=== PATIENT | female | born 1965 | race Caucasian/White ===

== ENCOUNTER 2018-04-13 19:20 | Inpatient (IN) | payer BC ==
[~2018-04-13] VITALS: Ht 157.5 cm; Wt 66.4 kg
[2018-04-13] MEDS ORDERED: piperacillin/tazo 3.375gm/50ml 50 ML IV STA (19:37)
[2018-04-13] MEDS ORDERED: metoclopramide 5 mg/ml inj IV ONE (19:40)
[2018-04-13] MEDS ORDERED: normal saline 1000ML IV soln IVB ONE ×2 (19:40)
[2018-04-13] MEDS ORDERED: diphenhydrAMINE 50 mg/ml inj IV ONE (19:40)
[2018-04-13 20:05] LABS: BASOPHILS % (AUTO) 0 % (0-1); EOSINOPHILS # (AUTO) 0.1 X10'3 (0-0.9); EOSINOPHILS % (AUTO) 0.8 % (0-6); HEMATOCRIT 45.9 % (35.0-45.0); HEMOGLOBIN 15.9 g/dl (12.0-16.0); LYMPHOCYTES # (AUTO) 0.6 X10'3 (1.1-4.8); LYMPHOCYTES % (AUTO) 4.6 % (21-51); MEAN CORPUSCULAR HEMOGLOBIN 31.9 PG (27.0-31.0); MEAN CORPUSCULAR HGB CONC 34.6 g/dL (33.0-36.5); MEAN CORPUSCULAR VOLUME 92.4 FL (78-98); MEAN PLATELET VOLUME 8.7 FL (7.4-10.4); MONOCYTES # (AUTO) 0.7 X10'3 (0-0.9); MONOCYTES % (AUTO) 5.3 % (2-12); NEUTROPHILS # (AUTO) 11.7 X10'3 (1.8-7.7); NEUTROPHILS % (AUTO) 89.3 % (42-75); PLATELET COUNT 232 X10'3 (140-440); RED BLOOD COUNT 4.97 X10'6 (4.20-5.60); RED CELL DISTRIBUTION WIDTH 13.3 % (11.5-14.5); WHITE BLOOD COUNT 13.1 X10'3 (4.5-11.0)
[2018-04-13 20:06] LABS: INR 1.1 INR; PROTHROMBIN TIME 10.9 SECONDS (9.0-12.0)
[2018-04-13 20:21] LABS: ALANINE AMINOTRANSFERASE 30 U/L (12-78); ALBUMIN/GLOBULIN RATIO 1.2 (1.1-1.5); ALKALINE PHOSPHATASE 75 IU/L (46-116); ANION GAP 19 (8-16); ASPARTATE AMINO TRANSFERASE 25 U/L (10-37); BILIRUBIN,TOTAL 0.8 MG/DL (0.1-1.0); BLOOD UREA NITROGEN 10 MG/DL (7-18); BUN/CREATININE RATIO 11.6 (6.6-38.0); CALCIUM 8.9 MG/DL (8.5-10.1); CHLORIDE 98 MMOL/L (99-107); CREATININE 0.86 MG/DL (0.40-0.90); GLUCOSE 150 MG/DL (70-104); POTASSIUM 3.4 MMOL/L (3.5-5.1); SODIUM 137 MMOL/L (135-145); TOTAL CARBON DIOXIDE 19.7 MMOL/L (24-32); TOTAL PROTEIN 7.4 G/DL (6.4-8.2); eGFR 70 ML/MIN
[2018-04-13] MEDS: HYDROmorphone inj. 0.5 MG/0.5 ML DISP.SYRIN IV PRN ×2 (20:24→21:52)
[2018-04-13] MEDS ORDERED: NO HOME MEDS (20:40)
[2018-04-13] MEDS ORDERED: HYDROmorphone inj. 0.5 MG/0.5 ML DISP.SYRIN IV ONE (20:55)
[2018-04-13] MEDS ORDERED: diatrozoate meglu/diatrozoate sod (37% iodine) 120ML oral solution ONE (20:59)
[2018-04-13] MEDS ORDERED: magnesium hydroxide 30ml (MOM) UD suspension PO PRN (21:20)
[2018-04-13] MEDS ORDERED: ondansetron/PF 4mg/2ml inj IV PRN (21:20)
[2018-04-13] MEDS ORDERED: HYDROmorphone inj. 0.5 MG/0.5 ML DISP.SYRIN IV PRN (21:20)
[2018-04-13] MEDS ORDERED: mag hydrox/Alum hydrox/simeth 30ml oral suspension PO PRN (21:20)
[2018-04-13] MEDS ORDERED: HYDROcodone/acetaminophen 5mg/325mg tablet PO PRN (21:20)
[2018-04-13] MEDS ORDERED: acetaminophen 325mg tablet PO PRN ×2 (21:20)
[2018-04-13 21:30] LABS: URINE HCG NEGATIVE (NEG)
[2018-04-13 21:34] LABS: CLARITY,URINE CLEAR (Clear); COLOR,URINE YELLOW (Yellow); GLUCOSE, URINE NEGATIVE (Neg); KETONES,URINE >=80 mg/dl (Neg); LEUKOCYTE ESTERASE ,URINE NEGATIVE (Neg); NITRITES, URINE NEGATIVE (Neg); OCCULT BLOOD,URINE TRACE-INTACT (Neg); PROTEIN,URINE NEGATIVE (Neg); UROBILINOGEN,URINE 0.2 E.U/dL (0.2-1.0)
[2018-04-13 21:51] LABS: UA COLLECTION TYPE CLN CATCH MIDSTREAM
[2018-04-13] MEDS: normal saline 1000ml 1,000 ML IV SCH (21:51)
[2018-04-13 21:52] LABS: BACTERIA,URINE NONE SEEN /HPF (Neg); RBC,URINE 0-2 /HPF (0-2); SQUAMOUS EPITHELIAL CELL,UR FEW /LPF (FEW); WBC,URINE NONE SEEN /HPF (0-4)
[2018-04-14] MEDS: normal saline 1000ml 1,000 ML IV SCH ×2 (03:58→11:29)
[2018-04-14] MEDS: HYDROcodone/acetaminophen 10/325mg tab PO PRN ×2 (05:04→11:29)
--- NOTE | 2018-04-14 06:35 | NUR ---
Assumed care of pt. Awaiting inpt room. Sleeping in [facility]. VSS. Will continue to monitor.
[2018-04-14] MEDS: HYDROmorphone inj. 0.5 MG/0.5 ML DISP.SYRIN IV PRN ×2 (08:08→18:41)
[2018-04-14] MEDS: piperacillin/tazo 4.5gm/100ml 100 ML IV SCH ×2 (08:18→16:00)
[2018-04-14 11:10] LABS: BASOPHILS % (AUTO) 0 % (0-1); EOSINOPHILS # (AUTO) 0.2 X10'3 (0-0.9); EOSINOPHILS % (AUTO) 1.5 % (0-6); HEMATOCRIT 35.4 % (35.0-45.0); HEMOGLOBIN 12.3 g/dl (12.0-16.0); LYMPHOCYTES # (AUTO) 0.9 X10'3 (1.1-4.8); LYMPHOCYTES % (AUTO) 9.1 % (21-51); MEAN CORPUSCULAR HEMOGLOBIN 32.2 PG (27.0-31.0); MEAN CORPUSCULAR HGB CONC 34.7 g/dL (33.0-36.5); MEAN CORPUSCULAR VOLUME 92.7 FL (78-98); MEAN PLATELET VOLUME 8.4 FL (7.4-10.4); MONOCYTES # (AUTO) 0.8 X10'3 (0-0.9); MONOCYTES % (AUTO) 7.4 % (2-12); NEUTROPHILS # (AUTO) 8.5 X10'3 (1.8-7.7); PLATELET COUNT 177 X10'3 (140-440); RED BLOOD COUNT 3.81 X10'6 (4.20-5.60); RED CELL DISTRIBUTION WIDTH 13.2 % (11.5-14.5); WHITE BLOOD COUNT 10.3 X10'3 (4.5-11.0)
[2018-04-14 11:17] LABS: ALBUMIN 2.6 G/DL (3.4-5.0); ANION GAP 11 (8-16); BLOOD UREA NITROGEN 8 MG/DL (7-18); BUN/CREATININE RATIO 11.1 (6.6-38.0); CALCIUM 7.5 MG/DL (8.5-10.1); CHLORIDE 107 MMOL/L (99-107); CREATININE 0.72 MG/DL (0.40-0.90); GLUCOSE 76 MG/DL (70-104); POTASSIUM 3.2 MMOL/L (3.5-5.1); SODIUM 143 MMOL/L (135-145); TOTAL CARBON DIOXIDE 24.9 MMOL/L (24-32); eGFR 86 ML/MIN
[2018-04-14] MEDS: HYDROmorphone 1 mg/ml syringe IV PRN (16:32)
[2018-04-14] MEDS: ringers solution, lacted 1,000 ML IV SCH (16:33)
[2018-04-14] MEDS ORDERED: ondansetron/PF 4mg/2ml inj IV ONE (16:45)
--- NOTE | 2018-04-14 18:57 | NUR ---
CALL NOLVIA BALLESTEROS AT [phone] WHEN AWAKE
[2018-04-15] MEDS: piperacillin/tazo 4.5gm/100ml 100 ML IV SCH ×2 (00:09→07:45)
--- NOTE | 2018-04-15 00:32 | NUR ---
Patient in room ED 6. I have received report from WINTER Chua and had the opportunity to ask questions and assume patient care.
[2018-04-15 01:05] VITALS: BP 121/66
[2018-04-15] MEDS: HYDROmorphone 1 mg/ml syringe IV PRN ×2 (01:43→05:57)
[2018-04-15] MEDS: ringers solution, lacted 1,000 ML IV SCH ×2 (02:54→11:40)
[2018-04-15 06:13] LABS: BASOPHILS % (AUTO) 0.1 % (0-1); EOSINOPHILS # (AUTO) 0.2 X10'3 (0-0.9); EOSINOPHILS % (AUTO) 1.8 % (0-6); HEMATOCRIT 37.2 % (35.0-45.0); HEMOGLOBIN 12.7 g/dl (12.0-16.0); LYMPHOCYTES # (AUTO) 0.8 X10'3 (1.1-4.8); LYMPHOCYTES % (AUTO) 7.7 % (21-51); MEAN CORPUSCULAR HGB CONC 34.1 g/dL (33.0-36.5); MEAN CORPUSCULAR VOLUME 93.7 FL (78-98); MEAN PLATELET VOLUME 8.9 FL (7.4-10.4); MONOCYTES # (AUTO) 0.7 X10'3 (0-0.9); MONOCYTES % (AUTO) 6.3 % (2-12); NEUTROPHILS # (AUTO) 8.9 X10'3 (1.8-7.7); NEUTROPHILS % (AUTO) 84.1 % (42-75); PLATELET COUNT 183 X10'3 (140-440); RED BLOOD COUNT 3.97 X10'6 (4.20-5.60); RED CELL DISTRIBUTION WIDTH 13.6 % (11.5-14.5); WHITE BLOOD COUNT 10.6 X10'3 (4.5-11.0)
[2018-04-15 06:18] LABS: ALBUMIN 2.7 G/DL (3.4-5.0); ANION GAP 14 (8-16); BLOOD UREA NITROGEN 9 MG/DL (7-18); BUN/CREATININE RATIO 13.8 (6.6-38.0); CALCIUM 8.1 MG/DL (8.5-10.1); CHLORIDE 106 MMOL/L (99-107); CREATININE 0.65 MG/DL (0.40-0.90); GLUCOSE 77 MG/DL (70-104); POTASSIUM 3.4 MMOL/L (3.5-5.1); SODIUM 142 MMOL/L (135-145); TOTAL CARBON DIOXIDE 22.5 MMOL/L (24-32); eGFR > 90 ML/MIN
--- NOTE | 2018-04-15 06:20 | NUR ---
Patient in room EDER 348. I have received report from WINTER Lyn and had the opportunity to ask questions and assume patient care.
--- NOTE | 2018-04-15 06:41 | NUR ---
Problems reprioritized. Patient report given, questions answered & plan of care reviewed with WINTER Cartagena.
[2018-04-15 07:31] VITALS: BP 103/57
[2018-04-15] MEDS ORDERED: potassium Cl 40MEQ/NS 500ml 500 ML IV PRN ×2 (10:50)
[2018-04-15] MEDS ORDERED: magnesium 2GM in 50ml NS 50 ML IV PRN (10:50)
[2018-04-15] MEDS ORDERED: magnesium 4gm in 100ml NS 100 ML IV PRN (10:50)
[2018-04-15] MEDS ORDERED: potassium Cl 20 mEq SR tablet PO PRN ×2 (10:50)
[2018-04-15] MEDS ORDERED: magnesium Cl slow-release 64mg tablet PO PRN (10:50)
[2018-04-15 11:30] VITALS: BP 116/71
[2018-04-15] MEDS ORDERED: potassium Cl oral solution 20 MEQ/15 ML PO PRN ×2 (13:29)
[2018-04-15] MEDS ORDERED: levoFLOXACIN-Levaquin 500mg/D5 100 ML IV SCH (15:15)
[2018-04-15] MEDS ORDERED: enoxaparin 40mg/0.4ml syringe SUBCUT SCH (15:15)
[2018-04-15] MEDS ORDERED: Potassium Cl inj 20 MEQ in normal saline 1000ml 990 ML IV SCH (15:15)
[2018-04-15] MEDS ORDERED: potassium Cl 20mEq in NS 1,000 ML IV SCH (15:49)
[2018-04-15] MEDS ORDERED: metroNIDAZOLE-Flagyl 500mg/NS 100 ML IV SCH (16:00)
[2018-04-15] MEDS ORDERED: CIPR-230 PO (16:38)
[2018-04-15] MEDS ORDERED: METR-159 PO (16:38)
[2018-04-15] MEDS ORDERED: POTA20TA19 PO (16:45)
--- NOTE | 2018-04-15 17:52 | NUR ---
Patient discharged. PIV removed: cath tip intact. Education given and patient verbalized understanding. Patient was given diet instructions and to follow up with Dr. Stein in 1 week. Patient will be escorted down by bonding machine operator when she is done eating.
[2018-04-15] MEDS ORDERED: diatr meglu/diatrizoate 30ml oral sol.-(3 dose) bottle PO SCH (21:00)
== END 2018-04-15 18:20 | disposition home or self-care (01) | DRG 391 ==
LOC: ER 19:21 → ED HOLD 21:18 → SUR 3N 04-15 01:03 → UNDODISIN 04-16 00:34
PROVIDERS: ADMIT Hospitalist; ATTEND Internal Medicine
DX: K52.9 Noninfective gastroenteritis and colitis, unspecified (principal); K63.1 Perforation of intestine (nontraumatic); E87.6 Hypokalemia; D72.829 Elevated white blood cell count, unspecified; Z98.891 History of uterine scar from previous surgery
CPT/HCPCS: 36415; 74176; 80048; 80053; 81001; 81025; 83605; 84145; 85025; 85610; 87040; 87070; 96365; 96375; 99285; G0378; J1170; J1200; J2543; J2765; J3480; J7030; J7120; Q9963